=== PATIENT | male | born 1970 | race Caucasian/White ===

== ENCOUNTER 2024-06-28 01:27 | Inpatient (IN) | payer BC, OTHER ==
[2024-06-28] MEDS ORDERED: ONDANSETRON 4 MG/2 ML VIAL ONE ×3 (02:28→11:09)
[2024-06-28] MEDS ORDERED: NA CHLORIDE 0.9% 1,000 ML ONE ×2 (02:29→05:13)
[2024-06-28] MEDS ORDERED: FAMOTIDINE 20 MG/2 ML VIAL IV ONE (02:29)
[2024-06-28] MEDS ORDERED: METOCLOPRAMIDE 10 MG/2mL INJ ONE (02:50)
[2024-06-28] MEDS ORDERED: MORPHINE 4 MG/ML SYR ONE ×2 (02:50→07:22)
[2024-06-28] MEDS ORDERED: KETOROLAC 30 MG/ML INJ ONE ×3 (02:50→11:09)
[2024-06-28 03:22] LABS: Absolute Lymphocytes (CBC) 1.3 K/uL (0.7-4.9); Absolute Monocytes 0.4 K/uL (0.1-1.3); Absolute Neutrophil 10.3 K/uL (1.8-8.0); Basophils % 0.4 % (0-1.3); Eosinophils % 0.2 % (0-4.4); Hematocrit 50.7 % (39.6-49.0); Lymphocytes % 10.6 % (15.3-44.8); MCH 29.5 pg (27.0-35.0); MCHC 33.5 g/dL (32.0-36.0); MPV 8.9 fL (7.6-11.3); Monocytes % 3.4 % (3.3-12.3); Neutrophils % 85.4 % (41.7-73.7); Nucleated Red Blood Cells % 0.1 % (0-0); Platelets 317 thou/uL (152-406); RBC Red Blood Cell Count 5.76 M/uL (4.33-5.43); Red Cell Distribution Width 13.7 % (12.1-15.2)
[2024-06-28 03:26] LABS: Albumin 4.3 g/dL (3.4-5.0); Albumin/Globulin Ratio 1.1 (1.1-1.8); Anion Gap 9.9 mEq/L (5.0-15.0); Bilirubin Total 0.4 mg/dL (0.2-1.0); Potassium 3.9 mEq/L (3.5-5.1); Protein, Total 8.3 g/dL (6.4-8.2)
[2024-06-28 03:29] LABS: C-Reactive Protein 3.27 mg/L (<3.00); Troponin High Sensitivity 6.3 pg/mL (<58.9)
[2024-06-28 03:57] LABS: Band Neutrophils 10 % (0-1); Differential Total Cells Count 100; Lymphocytes 8 % (15-42); Monocytes 1 % (0-10); Reactive Lymphocytes 8 %; Segmented Neutrophils 73 % (40-80)
[2024-06-28 03:58] LABS: Blood Morphology Comment NOT SEEN (NOT SEEN); Platelet Estimate ADEQ
--- NOTE | 2024-06-28 05:37 | RAD REPORT ---
EXAM: CT Chest, Abdomen and Pelvis With Intravenous Contrast CLINICAL HISTORY: The patient is 54 years old and is Male; Abdominal distention. TECHNIQUE: Axial computed tomography images of the chest, abdomen and pelvis with intravenous contr ast. Sagittal and coronal reformatted images were created and reviewed. This CT exam was performed using one or more of the following dose reduction techniques: automated exposure control, adjustment of the mA and/or kV according to patient size, and/or use of iterative reconstruction technique. COMPARISON: No relevant prior studies available. FINDINGS: CHEST: Lungs: Unremarkable. No mass. No consolidation or ground glass opacities. Pleural space: Unremarkable. No significant effusion. No pneumothorax. Heart: Coronary artery calcifications. No cardiomegaly. No significant pericardial effusion. ABDOMEN: Liver: Marked fatty infiltration of the liver. Gallbladder and bile ducts: Unremarkable. No calcified stones. No ductal dilation. Pancreas: No findings to suggest acute pancreatitis. No mass visualized. No ductal dilation. Spleen: Unremarkable. No splenomegaly. Adrenals: Unremarkable. No mass. Kidneys and ureters: Unremarkable. No hydronephrosis. No solid mass. Stomach and bowel: No bowel dilatation or obstruction. No bowel wall thickening. PELVIS: Appendix: The visualized appendix is normal. No pericecal inflammation to suggest acute appendici tis. Bladder: Unremarkable. No mass. Reproductive: Unremarkable as visualized. CHEST, ABDOMEN and PELVIS: Intraperitoneal space: Unremarkable. No significant fluid collection. No free air. Bones/joints: No acute fracture visualized. No dislocation. Soft tissues: Unremarkable. Vasculature: See above. Lymph nodes: Unremarkable. No enlarged lymph nodes. IMPRESSION: 1. No acute findings in the chest, abdomen or pelvis. 2. Marked fatty infiltration of the liver. 3. Additional non-emergent findings as above. Electronically signed by: Amy Mcintyre MD 06/28/2024 04:42 AM [facility] [place] Due to temporary technical issues with the PACS/[employer] reporting system, reports are being frankie d by the in-house radiologist without review as a courtesy to ensure prompt reporting the interpreting radiologist is fully responsible for the content of the report. Transcribed Date/Time: 06/28/2024 5:37 AM
--- NOTE | 2024-06-28 05:49 | RAD REPORT ---
EXAM: US Abdomen Limited, Right Upper Quadrant CLINICAL HISTORY: The patient is 54 years old and is Male; Abd pain. TECHNIQUE: Real-time ultrasound of the right upper quadrant with image documentation. COMPARISON: CT Chest abdomen pelvis 06/28/2024. FINDINGS: Liver: Fatty liver. No intrahepatic bile duct dilation. Gallbladder: Multiple gallstones. No pericholecystic fluid. Gallbladder wall thickness 4.4 mm. Common bile duct: Common bile duct 5.5 mm in diameter. No stones. No dilation. Pancreas: Unremarkable as visualized. Right kidney: Unremarkable. No stones. No solid mass. No hydronephrosis. IMPRESSION: 1. Cholelithiasis with mild gallbladder wall thickening. Correlate clinically for cholecystitis. 2. Fatty liver. Electronically signed by: Amy Mcintyre MD 06/28/2024 05:42 AM [facility] [place] Due to temporary technical issues with the PACS/[employer] reporting system, reports are being signed by the in-house radiologist without review as a courtesy to ensure prompt reporting the interpreting radiologist is fully responsible for the content of the report. Transcribed Date/Time: 06/28/2024 5:49 AM
--- NOTE | 2024-06-28 07:09 | ER ---
Nurse's Notes [facility] Name: Roman Cardona Age: 54 yrs Sex: Male : 1970 Arrival Date: 06/28/2024 Time: 01:27 Bed 12 Private MD: Diagnosis: Acute cholecystitis;Cholelithiasis with acute cholecystitis Presentation: 06/28 01:42 Chief complaint: Patient states: epigastric pain radiating to back began at 5 pm kl positive nausea. Coronavirus screen: Vaccine status: Patient reports being unvaccinated. Ebola Screen: Patient negative for fever greater than or equal to 101.5 degrees Fahrenheit, and additional compatible Ebola Virus Disease symptoms. Initial Sepsis Screen: Does the patient meet any 2 criteria? No. Patient's initial sepsis screen is negative. Does the patient have a suspected source of infection? No. Patient's initial sepsis screen is negative. Risk Assessment: Do you want to hurt yourself or someone else? Patient reports no desire to harm self or others. Onset of symptoms was June 27, 2024 at 17:00. 01:42 Method Of Arrival: Ambulatory 01:42 Acuity: NATA 3 kl Triage Assessment: 01:45 General: Appears uncomfortable, well developed, well nourished, Behavior is kl cooperative, restless. Pain: Complains of pain in epigastric area Pain currently is 8 out of 10 on a pain scale. GI: Reports nausea. Historical: - Allergies: 01:43 PENICILLINS; kl - Home Meds: 01:43 monjauro 15mg sq [Active]; kl - PMHx: 01:43 NIDDM; - PSHx: 01:43 elbow; kl - Immunization history:: Adult Immunizations not immunized. - Infectious Disease History:: Denies. - Social history:: Smoking status: Patient/guardian denies using tobacco, the patient reports quitting approximately 11 years ago. - Family history:: not pertinent. Screenin:39 [facility] ED Fall Risk Assessment (Adult) History of falling in the last 3 months, kl including since admission No falls in past 3 months (0 pts) Confusion or Disorientation No (0 pts) Intoxicated or Sedated No (0 pts) Impaired Gait No (0 pts) Mobility Assist Device Used No (0 pt) Altered Elimination No (0 pt) Score/Fall Risk Level 0 - 2 = Low Risk Oriented to surroundings, Maintained a safe environment. Abuse screen: Denies threats or abuse. Nutritional screening: No deficits noted. Tuberculosis screening: No symptoms or risk factors identified. Assessment: 02:39 General: Appears uncomfortable, Behavior is calm, cooperative. Pain: Complains of pain kl in epigastric area Pain radiates to posterior chest Pain currently is 8 out of 10 on a pain scale. Quality of pain is described as aching. Neuro: No deficits noted. Cardiovascular: No deficits noted. Rhythm is sinus rhythm. Respiratory: No deficits noted. GI: Reports upper abdominal pain, indigestion, nausea. : No deficits noted. No signs and/or symptoms were reported regarding the genitourinary system. EENT: No deficits noted. No signs and/or symptoms were reported regarding the EENT system. Derm: No deficits noted. No signs and/or symptoms reported regarding the dermatologic system. 03:30 Reassessment: Patient and/or family updated on plan of care and expected duration. Pain ha1 level reassessed. Patient is alert, oriented x 3, equal unlabored respirations, skin warm/dry/pink. Patient states feeling better. Patient states symptoms have improved. 04:20 Reassessment: Patient and/or family updated on plan of care and expected duration. Pain ha1 level reassessed. Patient is alert, oriented x 3, equal unlabored respirations, skin warm/dry/pink. 05:22 Reassessment: Patient and/or family updated on plan of care and expected duration. Pain ha1 level reassessed. Patient is alert, oriented x 3, equal unlabored respirations, skin warm/dry/pink. Patient states symptoms have improved. 07:33 Reassessment: Patient and/or family updated on plan of care and expected duration. Pain ap3 level reassessed. Patient is alert, oriented x 3, equal unlabored respirations, skin warm/dry/pink. General: Appears in no apparent distress. Behavior is calm, cooperative, appropriate for age. Pain: Complains of pain in epigastric area. Neuro: Level of Consciousness is awake, alert, obeys commands, Oriented to person, place, time, situation. Cardiovascular: Patient's skin is warm and dry. Respiratory: Airway is patent Respiratory effort is even, unlabored, Respiratory pattern is regular, symmetrical. GI: Reports upper abdominal pain. 09:04 Reassessment: Patient and/or family updated on plan of care and expected duration. Pain kb3 level reassessed. Pt ambulatory to restroom without difficulty. [employer]IPAL [employer]ELOPER at bedside to transport pt to PACU. Pt states no questions at this time. Vital Signs: 01:42 BP 187 / 111; Pulse 112; Resp 16; Pulse Ox 100% on R/A; Weight 97.98 kg; Height 5 ft. 6 kl in. ; Pain 8/10; 03:13 BP 183 / 116; Pulse 112; kl 03:32 BP 177 / 91; Pulse 110; Resp 18 S; Temp 97.9(T); Pulse Ox 100% on R/A; ha1 04:00 BP 168 / 94; Pulse 105; Resp 18 S; Pulse Ox 95% on R/A; ha1 05:22 BP 156 / 93; Pulse 106; Resp 18 S; Pulse Ox 94% on R/A; ha1 07:48 BP 175 / 97; Pulse 107; Resp 17; Pulse Ox 100% on R/A; ap3 01:42 Body Mass Index 34.86 (97.98 kg, 167.64 cm) kl 01:42 Pain Scale: Adult kl [place] Coma Score: 05:29 Eye Response: spontaneous(4). Motor Response: obeys commands(6). Verbal Response: sp4 oriented(5). Total: 15. ED Course: 01:31 Patient arrived in ED. im 01:35 Giovanni Roberson MD is Attending Physician. sp4 01:43 Triage completed. kl 02:24 Inserted saline lock: 20 gauge in right antecubital area, using aseptic technique. rv1 Blood collected. Flushed with 10 mL NS. 02:25 CBC with Diff Sent. rv1 02:25 CMP Sent. rv1 02:25 Lipase Sent. rv1 02:40 Patient has correct armband on for positive identification. kl 03:53 CT Chest, Abdomen, Pelvis - W/Contrast In Process Unspecified. EDMS 05:12 US Abdomen Limited In Process Unspecified. EDMS 07:04 Maryan Sinclair MD is Hospitalizing Provider. sp4 07:34 Arm band placed on right wrist. ap3 07:35 Laura Palm, ROBYN is Primary Nurse. ap3 Administered Medications: 02:30 Drug: Famotidine IVP 20 mg IVP once; dilute with 10 mL 0.9% NaCl; give over 2 minutes kl Route: IVP; Site: right antecubital; 07:34 Follow up: Response: No adverse reaction ap3 02:30 Drug: NS 0.9% IV 1000 ml IV at 1 bolus Per protocol; to be given as a bolus over 60 kl minutes Route: IV; Rate: 1 bolus; Site: right antecubital; 05:25 Follow up: Response: No adverse reaction; IV Status: Completed infusion; IV Intake: ha1 1000ml 02:35 Drug: Ondansetron IVP 4 mg IVP once; over 2 minutes Route: IVP; Site: right antecubital;kl 03:20 Follow up: Response: No adverse reaction; Marked relief of symptoms ha1 02:50 Drug: morphine IVP or IV 8 mg IVP once over 4 mins Route: IVP; Infused Over: 4 mins; kl Site: right antecubital; 03:20 Follow up: Response: No adverse reaction; Marked relief of symptoms; Pain is decreased; ha1 RASS: Alert and Calm (0) 02:55 Drug: metoCLOPramide IVP 10 mg IVP once; over 1 to 2 minutes Route: IVP; Site: right kl antecubital; 03:20 Follow up: Response: No adverse reaction; Marked relief of symptoms ha1 02:59 Drug: Ketorolac IVP 30 mg IVP once Route: IVP; Site: right antecubital; kl 03:30 Follow up: Response: No adverse reaction; Marked relief of symptoms ha1 05:20 Drug: NS 0.9% IV 1000 ml IV at 1 bolus Per protocol; to be given as a bolus over 60 ha1 minutes Route: IV; Rate: 1 bolus; Site: right antecubital; 07:33 Follow up: IV Status: Completed infusion; IV Intake: 1000ml ap3 07:33 Drug: Rocephin - Rocephin (cefTRIAXone) IVPB 1 grams IVPB once over 30 mins; (mix in 50 ap3 mL NS) Route: IVPB; Infused Over: 30 mins; Site: right antecubital; 07:49 Follow up: IV Status: Completed infusion ap3 07:33 Drug: morphine IVP or IV 4 mg IVP once over 4 mins Route: IVP; Infused Over: 4 mins; ap3 Site: right antecubital; 07:49 Follow up: Response: No adverse reaction; Pain is decreased; RASS: Alert and Calm (0) ap3 07:49 Drug: metroNIDAZOLE IVPB 500 mg 100 ml IVPB at 200 ml/hr once over 30 mins Volume: 100 ap3 ml; Route: IVPB; Rate: 200 ml/hr; Infused Over: 30 mins; Site: left antecubital; 08:44 Follow up: IV Status: Completed infusion ap3 Intake: 05:25 IV: 1000ml; Total: 1000ml. ha1 07:33 IV: 1000ml; Total: 2000ml. ap3 Outcome: 07:08 Decision to Hospitalize by Provider. sp4 09:08 Admitted to OR accompanied by nurse, via wheelchair, Report called to done at bedside kb3 09:08 Condition: stable 09:08 Patient left the ED. kb3 Signatures: Dispatcher [employer] EDMS Shaneka Mendenhall RN RN kl Prokisch, Amanda, RN RN ap3 Jessica Loyola RN RN ha1 Kathy Tomlinson RN RN kb3 Marsha Hand rvGiovanni Harris MD MD sp4 Brissa Perry Corrections: (The following items were deleted from the chart) 01:45 01:43 Allergies: No Known Allergies; yandy kebede
--- NOTE | 2024-06-28 07:09 | EDPHYS ---
Physician Documentation [facility] Name: Roman Cardona Age: 54 yrs Sex: Male : 1970 Arrival Date: 06/28/2024 Time: 01:27 Bed 12 Private MD: ED Physician Giovanni Roberson HPI: 06/28 01:35 This 54 yrs old Other Race Male presents to ER via Unassigned with complaints of sp4 Epigastric Pain, Nausea. 05:29 Patient presents with 2 days of moderate to severe epigastric abdominal pain associated sp4 with nausea. Historical: - Allergies: : PENICILLINS; kl - Home Meds: : monjauro 15mg sq [Active]; kl - PMHx: :43 NIDDM; kl - PSHx: :43 elbow; kl - Immunization history:: Adult Immunizations not immunized. - Infectious Disease History:: Denies. - Social history:: Smoking status: Patient/guardian denies using tobacco, the patient reports quitting approximately 11 years ago. - Family history:: not pertinent. ROS: 05:29 Constitutional: Negative for fever, chills, and weight loss, positive for epigastric sp4 pain positive for nausea positive for chest pain Eyes: Negative for injury, pain, redness, and discharge, 05:29 All other systems are negative, Exam: 05:29 Constitutional: This is a well developed, well nourished patient who is awake, alert, sp4 uncomfortable appearing Head/Face: Normocephalic, atraumatic. Eyes: Pupils equal round and reactive to light, extra-ocular motions intact. Lids and lashes normal. Conjunctiva and sclera are not injected. Cornea within normal limits. Periorbital areas with no swelling, redness, or edema. ENT: Nares patent. No nasal discharge, no septal abnormalities noted. Tympanic membranes are normal and external auditory canals are clear. Oropharynx with no redness, swelling, or masses, exudates, or evidence of obstruction, uvula midline. Mucous membranes moist. Neck: Trachea midline, no thyromegaly or masses palpated, and no cervical lymphadenopathy. Supple, full range of motion without nuchal rigidity, or vertebral point tenderness. Chest/axilla: Normal chest wall appearance and motion. Nontender with no deformity. No lesions are appreciated. Cardiovascular: Regular rate and rhythm with a normal S1 and S2. No gallops, murmurs, or rubs. Normal PMI, no JVD. No pulse deficits. Respiratory: Lungs have equal breath sounds bilaterally, clear to auscultation and percussion. No rales, rhonchi or wheezes noted. No increased work of breathing, no retractions or nasal flaring. Abdomen/GI: Soft, with normal bowel sounds. No distension or tympany. No guarding or rebound. Positive for epigastric abdominal tenderness Back: No spinal tenderness. No costovertebral tenderness. Skin: Warm, dry with normal turgor. Normal color with no rashes, no lesions, and no evidence of cellulitis. MS/ Extremity: Pulses equal, no cyanosis. Neurovascular intact. Full, normal range of motion. Neuro: Awake and alert, GCS 15, oriented to person, place, time, and situation. Cranial nerves II-XII grossly intact. Motor strength 5/5 in all extremities. Sensory grossly intact. Psych: Awake, alert, with orientation to person, place and time. Behavior, mood, and affect are within normal limits 05:29 ECG was reviewed by the Attending Physician. EKG at 0 216 sinus tachycardia 104 otherwise normal Vital Signs: 01:42 BP 187 / 111; Pulse 112; Resp 16; Pulse Ox 100% on R/A; Weight 97.98 kg; Height 5 ft. 6 kl in. ; Pain 8/10; 03:13 BP 183 / 116; Pulse 112; kl 03:32 BP 177 / 91; Pulse 110; Resp 18 S; Temp 97.9(T); Pulse Ox 100% on R/A; ha1 04:00 BP 168 / 94; Pulse 105; Resp 18 S; Pulse Ox 95% on R/A; ha1 05:22 BP 156 / 93; Pulse 106; Resp 18 S; Pulse Ox 94% on R/A; ha1 07:48 BP 175 / 97; Pulse 107; Resp 17; Pulse Ox 100% on R/A; ap3 01:42 Body Mass Index 34.86 (97.98 kg, 167.64 cm) 01:42 Pain Scale: Adult Montgomery Coma Score: 05:29 Eye Response: spontaneous(4). Motor Response: obeys commands(6). Verbal Response: sp4 oriented(5). Total: 15. MDM: 01:38 Medical Screening Exam initiated sp4 05:40 ED course: EXAM: CT Chest, Abdomen and Pelvis With Intravenous Contrast CLINICAL sp4 HISTORY: The patient is 54 years old and is Male; Abdominal distention. TECHNIQUE: Axial computed tomography images of the chest, abdomen and pelvis with intravenous contrast. Sagittal and coronal reformatted images were created and reviewed. This CT exam was performed using one or more of the following dose reduction techniques: automated exposure control, adjustment of the mA and/or kV according to patient size, and/or use of iterative reconstruction technique. COMPARISON: No relevant prior studies available. FINDINGS: CHEST: Lungs: Unremarkable. No mass. No consolidation or ground glass opacities. Pleural space: Unremarkable. No significant effusion. No pneumothorax. Heart: Coronary artery calcifications. No cardiomegaly. No significant pericardial effusion. ABDOMEN: Liver: Marked fatty infiltration of the liver. Gallbladder and bile ducts: Unremarkable. No calcified stones. No ductal dilation. Pancreas: No findings to suggest acute pancreatitis. No mass visualized. No ductal dilation. Spleen: Unremarkable. No splenomegaly. Adrenals: Unremarkable. No mass. Kidneys and ureters: Unremarkable. No hydronephrosis. No solid mass. Stomach and bowel: No bowel dilatation or obstruction. No bowel wall thickening. PELVIS: Appendix: The visualized appendix is normal. No pericecal inflammation to suggest acute appendicitis. Bladder: Unremarkable. No mass. Reproductive: Unremarkable as visualized. CHEST, ABDOMEN and PELVIS: Intraperitoneal space: Unremarkable. No significant fluid collection. No free air. Bones/joints: No acute fracture visualized. No dislocation. Soft tissues: Unremarkable. Vasculature: See above. Lymph nodes: Unremarkable. No enlarged lymph nodes. IMPRESSION: 1. No acute findings in the chest, abdomen or pelvis. 2. Marked fatty infiltration of the liver. 3. Additional non-emergent findings as above. Electronically signed by: Amy Mcintyre MD 06/28/2024 04:42. 07:09 Differential diagnosis: Nonspecific abd pain, gastritis, cholecystitis, pancreatitis, sp4 appendicitis, viral gastroenteritis, gastroenteritis. Data reviewed: vital signs, nurses notes, lab test result(s), radiologic studies, CT scan, ultrasound. Consideration of Admission/Observation Escalation of care including admission/observation considered. Management of patient was discussed with the following: Hospitalist: Loan GARNER. Jewel Diameter Gauger: Patient presents with epigastric abdominal pain. Ultrasound revealed acute cholecystitis patient discussed with Dr. Ford with general surgery. Admitted to hospitalist. ED course: EXAM: US Abdomen Limited, Right Upper Quadrant CLINICAL HISTORY: The patient is 54 years old and is Male; Abd pain. TECHNIQUE: Real-time ultrasound of the right upper quadrant with image documentation. COMPARISON: CT Chest abdomen pelvis 06/28/2024. FINDINGS: Liver: Fatty liver. No intrahepatic bile duct dilation. Gallbladder: Multiple gallstones. No pericholecystic fluid. Gallbladder wall thickness 4.4 mm. Common bile duct: Common bile duct 5.5 mm in diameter. No stones. No dilation. Pancreas: Unremarkable as visualized. Right kidney: Unremarkable. No stones. No solid mass. No hydronephrosis. IMPRESSION: 1. Cholelithiasis with mild gallbladder wall thickening. Correlate clinically for cholecystitis. 2. Fatty liver.. 06/28 01:35 Order name: CBC with Diff; Complete Time: 04:30 sp4 06/28 01:35 Order name: CMP; Complete Time: 04:30 sp4 06/28 01:35 Order name: Lipase; Complete Time: 04:30 sp4 06/28 01:35 Order name: Urinalysis w/ reflexes sp4 06/28 02:26 Order name: Troponin High Sensitivity; Complete Time: 04:30 sp4 06/28 02:26 Order name: BNP; Complete Time: 04:30 sp4 06/28 02:26 Order name: CRP; Complete Time: 04:30 sp4 06/28 03:25 Order name: Manual Differential; Complete Time: 04:30 EDMS 06/28 07:29 Order name: Urinalysis w/ reflexes EDMS 06/28 07:29 Order name: Basic Metabolic Panel EDMS 06/28 07:29 Order name: Basic Metabolic Panel EDMS 06/28 07:29 Order name: CBC with Automated Diff EDMS 06/28 07:29 Order name: CBC with Automated Diff EDMS 06/28 07:29 Order name: Magnesium EDMS 06/28 07:29 Order name: Magnesium EDMS 06/28 02:27 Order name: CT Chest, Abdomen, Pelvis - W/Contrast; Complete Time: 06:57 sp4 06/28 04:30 Order name: US Abdomen Limited; Complete Time: 06:57 sp4 06/28 07:29 Order name: CONS Physician Consult EDMS 06/28 01:35 Order name: IV Saline Lock; Complete Time: 02:25 sp4 06/28 01:35 Order name: Labs collected and sent; Complete Time: : sp4 06/28 06:57 Order name: NPO; Complete Time: 07:33 sp4 EC:16 Rate is 104 beats/min. Rhythm is regular, Sinus tachycardia. QRS Paradis is Normal. OH sp4 interval is normal. QRS interval is normal. QT interval is normal. No Q waves. T waves are Normal. No ST changes noted. Clinical impression: No evidence of ischemia. Interpreted by me. Reviewed by me. Administered Medications: 02:30 Drug: Famotidine IVP 20 mg IVP once; dilute with 10 mL 0.9% NaCl; give over 2 minutes kl Route: IVP; Site: right antecubital; 07:34 Follow up: Response: No adverse reaction ap3 02:30 Drug: NS 0.9% IV 1000 ml IV at 1 bolus Per protocol; to be given as a bolus over 60 kl minutes Route: IV; Rate: 1 bolus; Site: right antecubital; 05:25 Follow up: Response: No adverse reaction; IV Status: Completed infusion; IV Intake: ha1 1000ml 02:35 Drug: Ondansetron IVP 4 mg IVP once; over 2 minutes Route: IVP; Site: right antecubital; 03:20 Follow up: Response: No adverse reaction; Marked relief of symptoms ha1 02:50 Drug: morphine IVP or IV 8 mg IVP once over 4 mins Route: IVP; Infused Over: 4 mins; kl Site: right antecubital; 03:20 Follow up: Response: No adverse reaction; Marked relief of symptoms; Pain is decreased; ha1 RASS: Alert and Calm (0) 02:55 Drug: metoCLOPramide IVP 10 mg IVP once; over 1 to 2 minutes Route: IVP; Site: right kl antecubital; 03:20 Follow up: Response: No adverse reaction; Marked relief of symptoms ha1 02:59 Drug: Ketorolac IVP 30 mg IVP once Route: IVP; Site: right antecubital; 03:30 Follow up: Response: No adverse reaction; Marked relief of symptoms ha1 05:20 Drug: NS 0.9% IV 1000 ml IV at 1 bolus Per protocol; to be given as a bolus over 60 ha1 minutes Route: IV; Rate: 1 bolus; Site: right antecubital; 07:33 Follow up: IV Status: Completed infusion; IV Intake: 1000ml ap3 07:33 Drug: Rocephin - Rocephin (cefTRIAXone) IVPB 1 grams IVPB once over 30 mins; (mix in 50 ap3 mL NS) Route: IVPB; Infused Over: 30 mins; Site: right antecubital; 07:49 Follow up: IV Status: Completed infusion ap3 07:33 Drug: morphine IVP or IV 4 mg IVP once over 4 mins Route: IVP; Infused Over: 4 mins; ap3 Site: right antecubital; 07:49 Follow up: Response: No adverse reaction; Pain is decreased; RASS: Alert and Calm (0) ap3 07:49 Drug: metroNIDAZOLE IVPB 500 mg 100 ml IVPB at 200 ml/hr once over 30 mins Volume: 100 ap3 ml; Route: IVPB; Rate: 200 ml/hr; Infused Over: 30 mins; Site: left antecubital; 08:44 Follow up: IV Status: Completed infusion ap3 Disposition Summary: 06/28/24 07:08 Hospitalization Ordered Notes: Hospitalization Status: Observation sp4 Provider: Maryan Sinclair sp4 [facility] sp[facility] Condition: Stable sp4 Problem: new sp4 Symptoms: have improved sp4 Bed/Room Type: Standard sp4 Room Assignment: sp4 Diagnosis - Acute cholecystitis sp4 - Cholelithiasis with acute cholecystitis sp4 Forms: - Medication Reconciliation Form sp4 - SBAR form sp4 - Leadership Thank You Letter sp4 Signatures: Dispatcher [employer] EDMS Shaneka Mendenhall RN RN kl Prokisch, Amanda, RN RN ap3 Jessica Loyola RN RN ha1 Giovanni Roberson MD MD sp4 Corrections: (The following items were deleted from the chart) 01:36 01:36 CBC+H.LAB.BRZ ordered. EDMS EDMS 01:36 01:36 COMPREHENSIVE METABOLIC PANEL+C.LAB.BRZ ordered. EDMS EDMS 01:36 01:36 LIPASE+C.LAB.BRZ ordered. EDMS EDMS 01:36 01:36 Urinalysis+U.LAB.BRZ ordered. EDMS EDMS 01:45 01:43 Allergies: No Known Allergies; kl kl 02:27 02:27 Troponin High Sensitivity+C.LAB.BRZ ordered. EDMS EDMS 02:27 02:27 PROBNP+C.LAB.BRZ ordered. EDMS EDMS 02:27 02:27 C-REACTIVE PROTEIN+C.LAB.BRZ ordered. EDMS EDMS 02:27 02:27 Chest Abdomen Pelvis W Con+CT.RAD.BRZ ordered. EDMS EDMS
[2024-06-28] MEDS ORDERED: NA CHLORIDE 0.9% 100 ML ONE (07:22)
[2024-06-28] MEDS ORDERED: METRONIDAZOLE 500mg IVPB 500 MG/100 ML BAG IV ONE (07:22)
[2024-06-28] MEDS ORDERED: CEFTRIAXONE 1000 MG/VIAL ONE (07:22)
[2024-06-28] MEDS ORDERED: ACETAMINOPHEN 500 MG TAB PO PRN (07:23)
[2024-06-28] MEDS ORDERED: ONDANSETRON 4 MG/2 ML VIAL IV PRN (07:23)
[2024-06-28] MEDS: METOPROLOL TARTRATE 5 MG/5 ML INJ IV ONE (08:00)
[2024-06-28] MEDS ORDERED: PIPER TAZO 3.375 GM in NA CHLORIDE 0.9% 100 ML IV SCH (09:00)
[2024-06-28] MEDS: NA CHLORIDE 0.9% 1,000 ML ONE ×2 (09:17→13:39)
[2024-06-28] MEDS ORDERED: LIDOCAINE 1% MPF 5 ML VIAL ONE ×2 (09:21→11:09)
[2024-06-28] MEDS ORDERED: FENTANYL CITR 100 MCG/2 ML ONE ×2 (09:21→11:09)
[2024-06-28] MEDS ORDERED: ROCURONIUM 50 MG/5 ML VIAL IV ONE ×2 (09:21→11:09)
[2024-06-28] MEDS ORDERED: MIDAZOLAM HCL 2 MG/2 ML INJ ONE ×2 (09:21→11:09)
[2024-06-28] MEDS ORDERED: propofoL 200 MG/20 ML VIAL IV ONE ×2 (09:21→11:09)
[2024-06-28] MEDS: SUGAMMADEX SODIUM 200 MG/2 ML VIAL IV ONE (11:46)
[2024-06-28] MEDS: SUCCINYLCHOLINE 20 MG/ML (10 ML) IV ONE (11:47)
[2024-06-28] MEDS ORDERED: dexAMETHasone 10 MG/ML VIAL ONE (12:15)
[2024-06-28] MEDS: HYDROMORPHONE HCL 1 MG/ML INJ ONE (12:51)
--- NOTE | 2024-06-28 13:41 | P.BOP ---
Preoperative diagnosis: Acute cholecystitis, symptomatic cholelithiasis Postoperative diagnosis: same Primary procedure: Laparoscopic cholecystectomy Estimated blood loss: <10cc Specimen: gb Findings: as above Anesthesia: General Complications: None Drain(s): DESIRE drain Transferred to: Recovery Room Condition: Good
--- NOTE | 2024-06-28 13:58 | CON ---
Date of Consultation: 06/28/2024 Diagnoses: Acute cholecystitis, symptomatic cholelithiasis. History Of Present Illness: This is the case of a 54-year-old patient with history of hypertension a nd diabetes, who comes to us with epigastric right upper quadrant pain radiating to the back associat ed with nausea, vomiting, starting last night, postprandial. He had some prior episode, but he did n ot pinpoint it out as the gallbladder, now is more delineated and the imaging confirmed the diagnosis . He has been trying to lose some weight. He is even on Mounjaro, also trying to control his diabet es. He denies any dysuria, hematuria, hematochezia, melena. Denies any recent traveling out of the country. Denies any family member sick at home. Past Medical History: Diabetes, non-insulin dependent. Medications: PO diabetes medications and Mounjaro. Social History: He does not smoke. He does not drink alcohol. Family History: Noncontributory. Allergies: PENICILLIN. Review of Systems: See above. Nausea, vomiting, epigastric pain. 10 points otherwise unremarkable. Physical Examination: Vital Signs: Reviewed. General: The patient is awake, alert. HEENT: Pupils are equal and reactive. Anicteric. Neck: Supple. Chest: Clear. Heart: S1, S2. Abdomen: Epigastric, right upper quadrant pain radiating to the back. Warner sign positive. Extremities: Good capillary refill. Lab: WBC count is 12, hemoglobin 17, and platelets are 317. Potassium 3.9, and creatinine is 1.24. Right upper quadrant abdominal pain includes a cholelithiasis with gallbladder wall thickening, fatt y liver. CAT scan of the abdomen and pelvis. CAT scan fatty liver. Appendix normal. Lymph nodes u nremarkable. Assessment: A 54-year-old patient with acute cholecystitis, symptomatic cholelithiasis. Benefits, a lternatives, risks of laparoscopic possible open cholecystectomy fully explained, which include, but not limited to infection, bleeding, damage to adjacent structures, anesthesia complication, choledoch olithiasis, bile leak, pancreatitis, GA and even . He also understands this may not relieve sym ptoms, he might need more than one surgical intervention. He understood and signed the consent. KRIS/KIKI Voice ID: [id number] Report ID: [id number]
--- NOTE | 2024-06-28 14:49 | OP ---
Date of Procedure: 06/28/2024 Surgeon: Topher Ford MD Preoperative Diagnoses: Acute cholecystitis, symptomatic cholelithiasis. Postoperative Diagnoses: Acute cholecystitis, symptomatic cholelithiasis. Procedure: Laparoscopic cholecystectomy. Estimated Blood Loss: Less than 10 cc. Specimen: Gallbladder. Anesthesia: General plus local. Complications: None. Drains: DESIRE #10. Indications: This is the case of a 54-year-old patient, comes to us with acute epigastric and right upper quadrant pain, diagnosed with acute cholecystitis. The benefits, alternatives, and risks of la paroscopic possible open cholecystectomy fully explained, which include, but not limited to infection , bleeding, damage to adjacent structures, anesthesia complication, choledocholithiasis, bile leak, p ancreatitis, MA, even . He also understands this may not relieve the symptoms. He might need m ore than one surgical intervention. He understood, signed a consent. Description Of Procedure: The patient brought to the operating room, placed in supine position. Ane sthesia was done without complication. Abdominal area was prepped and draped in sterile fashion. Ma rcaine 0.5% injected for local anesthetic followed by sharp incision of the skin in the supraumbilica l region. Incision was carried down to fascia, which was opened under direct vision. Peritoneum was encountered, opened under direct vision. Vicryl #1 placed inside the fascia. Sadiq trocar was car efully introduced. No bleeding was obtained. I placed attention to the gallbladder, looks inflamed and contracted. We put a grasper in the fundus of the gallbladder, another grasper in the infundibul um, retracting the gallbladder in the inferolateral fashion exposing the triangle of Calot, obtaining critical view. Multiple adhesions of the gallbladder probably from previous inflammation were disse cted with the help of LigaSure to expose the gallbladder completely. Once again, with the gallbladde r retracted in the inferolateral fashion, we proceeded to isolate the cystic duct and cystic artery c ircumferentially and a connection between those and the gallbladder was clearly identified after crit ical view was obtained. At that moment, I proceeded to place 3 clips proximal 1 clip distal, ligatio n in middle. Same was done with the cystic artery. A small little branch of the cystic artery was a lso ligated using same technique. Common bile duct and hepatic arteries were protected at all times. Area was irrigated, suction was done. At that moment, I proceeded then to remove the gallbladder f rom liver using Bovie cauterizer and removed from abdominal cavity using EndoCatch through the umbili jes incision. This gallbladder was imbedded into the liver bed that we had to deflate the gallbladde r to be able to remove that completely. The gallbladder was removed once again from the abdomen to a n EndoCatch through the umbilical incision. The area was inspected once again. Hemostasis was obtai nicholas in the liver bed. I left a DESIRE drain in that region to help us with this inflammatory process. T he DESIRE drain was put through one of the trocar sites, secured in place with 2-0 nylon. Area was inspe cted once again. No bile leak. No bleeding. At that moment, I proceeded to remove the trocars unde r direct vision. Deflated the pneumoperitoneum. Closed the fascia with #1 Vicryl. Irrigated subcut aneous tissue, closed that with 3-0 chromic and skin with reji. Sponge count, instrument counts c orrect. The patient tolerated the procedure well. The patient was sent to recovery in stable condit ion. KRIS/KIKI Voice ID: [id number] Report ID: [id number]
[2024-06-28] MEDS: NA CHLORIDE 0.9% 1,000 ML IV SCH (16:00)
[2024-06-28] MEDS: METRONIDAZOLE 500mg IVPB 500 MG/100 ML BAG IV SCH (17:00)
[2024-06-28 19:08] VITALS: BMI 34.8
[2024-06-28] MEDS: HYDROCODONE/APAP 5/325 MG TAB PO PRN (20:12)
[2024-06-28] MEDS: CIPROFLOXACIN 400mg IV 400 MG/200 ML BAG IV SCH (20:12)
--- NOTE | 2024-06-28 21:19 | P.HP ---
Certification for Inpatient Patient admitted to: Inpatient With expected LOS: <2 Midnights <Elana Cates - Last Filed: 07/01/24 15:50> Patient History Date of Service: 07/01/24 Reason for admission: Acute acute cholecystitis History of Present Illness: 54 yrs old with a past medical history NIDDM presents to the emergency room with abdominal pain. He reports associated nausea vomiting. No reported fever, chest pain, shortness of breath, dizziness. ER evaluation patient abdominal ultrasound cholelithiasis with mild gallbladder wall thickening. Correlate clinically for cholecystitis.2. Fatty liver. Laboratory evaluation leukocytosis 12.0, liver enzymes normal plan to admit for acute cholecystitis, abdominal pain, nausea vomiting with surgery to consult. - Past Medical/Surgical History Diabetic: Yes -: None insulin-dependent diabetes mellitus -: GERD -: Status post laparoscopic cholecystectomy - Social History Smoking Status: Former smoker Alcohol use: Yes CD- Drugs: No Caffeine use: No Place of Residence: Home <Elana Cates - Last Filed: 07/01/24 15:50> Date of Service: 06/28/24 <Maryan Sinclair - Last Filed: 07/03/24 01:47> Allergies Penicillins Allergy (Unknown, Verified 06/28/24 19:51) unknown, please verify with patient Home Medications: Omeprazole [Prilosec] 40 mg PO DAILY 06/28/24 Tirzepatide [Mounjaro] 15 mg SQ Q7D 06/28/24 allopurinoL [Zyloprim*] 300 mg PO DAILY 06/28/24 icosapent ethyL [Icosapent Ethyl] 2 cap PO DAILY 06/28/24 tadalafiL [Tadalafil] 5 mg PO DAILY 06/28/24 Bacillus Coagulans [Probiotics] 1 each PO BID 7 Days #14 tab.chew 06/30/24 Ciprofloxacin HCl [Cipro] 500 mg PO BID 7 Days #14 tab 06/30/24 traMADol HCL [Ultram*] 50 mg PO Q6H PRN 7 Days #15 tab 06/30/24 Review of Systems 10-point ROS is otherwise unremarkable <Elana Cates - Last Filed: 07/01/24 15:50> Physical Examination - Vital Signs Temperature: 97.5 F Blood Pressure: 159/84 Pulse: 111 Respirations: 17 Pulse Ox (%): 99 - Physical Exam General: Alert, In no apparent distress, Oriented x3 HEENT: Atraumatic, Normocephalic Neck: Supple, JVD not distended Respiratory: Clear to auscultation bilaterally, Normal air movement Cardiovascular: Normal pulses, Regular rate/rhythm, Normal S1 S2 Gastrointestinal: Normal bowel sounds, Other (Upper quadrant tenderness, epigastric tenderness) Musculoskeletal: No clubbing, No swelling Integumentary: No breakdown, No significant lesion Neurological: Normal speech, Normal strength at 5/5 x4 extr, Sensation intact - Studies Laboratory Data (last 24 hrs) 06/28/24 06/28/24 02:23 02:23 WBC 12.00 H Hgb 17.0 Hct 50.7 H Plt Count 317 Sodium 136 Potassium 3.9 BUN 15 Creatinine 1.24 Glucose 201 H Total Bilirubin 0.4 AST 20 ALT 50 Alkaline Phosphatase 70 Lipase 102 H <Elana Cates - Last Filed: 07/01/24 15:50> Assessment and Plan - Plan Assessment plan - Current Problems (Diagnosis) (1) Acute cholecystitis Current Visit: Yes Status: Acute (2) Abdominal pain Current Visit: Yes Status: Acute Qualifiers: Abdominal location: right upper quadrant Qualified Code(s): R10.11 - Right upper quadrant pain (3) Nausea & vomiting Current Visit: Yes Status: Acute Qualifiers: Vomiting type: bilious vomiting Qualified Code(s): R11.14 - Bilious vomiting Qualifiers: (4) Non-insulin dependent type 2 diabetes mellitus Current Visit: Yes Status: Acute (5) Microcytic anemia Current Visit: Yes Status: Chronic (6) Fatty liver Current Visit: Yes Status: Acute - [facility], keep n.p.o., IV fluids, IV antibiotics, as needed analgesics, antiemetics Resume home medication Trend H&H, Accu-Chek ACHS, sliding scale insulin Trend H&H, Educated on low-fat low-sodium diet Full code DVT SCDs Diet clear liquids advance as tolerated Discharge Plan: Home - Code Status/Comfort Care Code Status: Full Code Critical Care: No Time Spent Managing PTS Care (In Minutes): 55 Discharge Plan: Home - Advance Directives Does patient have a Living Will: No Does patient have a Durable POA for Healthcare: No - Code Status/Comfort Care Code Status: Full Code Time Spent Managing Pts Care (In Minutes): 55 <Elana Cates - Last Filed: 07/01/24 15:50> Date of Service: 06/28/24 Chart has been reviewed. Events of the last 24 hours have been noted. Case discussed with MARYAN. I performed a substantial part of the MDM during this patient's care today. I personally made or approved the documented management plan and acknowledge its risk of complications. I agree with the findings and documentation provided in the MARYAN's notes <Maryan Sinclair - Last Filed: 07/03/24 01:47>
[2024-06-28] MEDS: carvediloL 6.25 MG TAB PO SCH (21:51)
[2024-06-29] MEDS: MORPHINE 4 MG/ML SYR IV PRN (00:16)
[2024-06-29 05:32] LABS: Absolute Lymphocytes (CBC) 1.8 K/uL (0.7-4.9); Absolute Monocytes 0.7 K/uL (0.1-1.3); Absolute Neutrophil 8.6 K/uL (1.8-8.0); Basophils % 0.2 % (0-1.3); Eosinophils % 0.2 % (0-4.4); Hematocrit 42.7 % (39.6-49.0); Hemoglobin 14.3 g/dL (13.6-17.9); MCH 29.5 pg (27.0-35.0); MCHC 33.5 g/dL (32.0-36.0); MCV 88.3 fL (80-100); MPV 8.5 fL (7.6-11.3); Monocytes % 6.6 % (3.3-12.3); Nucleated Red Blood Cells % 0.1 % (0-0); Platelets 259 thou/uL (152-406); RBC Red Blood Cell Count 4.83 M/uL (4.33-5.43); Red Cell Distribution Width 13.7 % (12.1-15.2)
[2024-06-29 05:35] LABS: Anion Gap 7.7 mEq/L (5.0-15.0); Magnesium 1.9 mg/dL (1.6-2.4); Potassium 3.7 mEq/L (3.5-5.1)
[2024-06-29] MEDS: INSULIN REGULAR (HUMAN) 100 UNIT/ML SQ SCH (07:30)
[2024-06-29] MEDS: POTASSIUM CL SA 10 MEQ TAB PO ONE (09:34)
--- NOTE | 2024-06-29 15:48 | EKG ---
Test Date: 2024-06-28 Test Time: 02:16:46 Director Of Partnerships: RV MEASUREMENT RESULTS: Intervals: Rate: 104 LA: 176 QRSD: 88 QT: 352 QTc: 462 [place]: P: 53 LA: 176 QRS: 66 T: 46 INTERPRETIVE STATEMENTS: Sinus tachycardia Otherwise normal ECG Compared to ECG 10/10/2009 09:27:38 Sinus rhythm no longer present Electronically Signed On 06-29-24 15:46:14 RETAIL ASSISTANT MANAGER by Sonu Doan
--- NOTE | 2024-06-29 19:13 | P.PN ---
Subjective Date of Service: 06/29/24 Pain control as needed analgesia, tolerating diet, <Elana Cates - Last Filed: 06/29/24 19:16> Date of Service: 06/29/24 <Maryan Sinclair - Last Filed: 07/03/24 01:50> Review of Systems 10-point ROS is otherwise unremarkable <Elana Cates - Last Filed: 06/29/24 19:16> Physical Examination - Vital Signs Temperature: 99.2 F Blood Pressure: 144/86 Pulse: 74 Respirations: 16 Pulse Ox (%): 96 - Physical Exam General: Alert, In no apparent distress, Oriented x3 HEENT: Atraumatic, Normocephalic Neck: Supple Respiratory: Clear to auscultation bilaterally, Normal air movement Cardiovascular: Normal pulses, Regular rate/rhythm Gastrointestinal: Normal bowel sounds, Other (Abdominal dressing clean dry and intact, DESIRE drain intact) Integumentary: Other (Laparoscopic surgical dressing dry and intact) Neurological: Normal speech, Normal strength at 5/5 x4 extr <Elana Cates - Last Filed: 06/29/24 19:16> Assessment And Plan - Current Problems (Diagnosis) (1) Acute cholecystitis Status: Acute (2) Status post laparoscopic cholecystectomy Status: Acute (3) Abdominal pain Status: Acute Qualifiers: Abdominal location: right upper quadrant Qualified Code(s): R10.11 - Right upper quadrant pain (4) Nausea & vomiting Status: Acute Qualifiers: Vomiting type: bilious vomiting Qualified Code(s): R11.14 - Bilious vomiting - Plan Admit to [facility] Surgery consult, keep n.p.o., DESIRE drain, monitor output IV fluids, IV antibiotics, as needed analgesics, antiemetics Advance diet postop as tolerated, Resume home medication Full code DVT SCDs Diet clear liquids advance as tolerated Discharge Plan: Home - Code Status/Comfort Care Code Status: Full Code Critical Care: No Time Spent Managing PTS Care (In Minutes): 35 <Elana Cates - Last Filed: 06/29/24 19:16> Date of Service: 06/29/24 Chart has been reviewed. Events of the last 24 hours have been noted. Case discussed with MARYAN. I performed a substantial part of the MDM during this patient's care today. I personally made or approved the documented management plan and acknowledge its risk of complications. I agree with the findings and documentation provided in the MARYAN's notes <Maryan Sinclair - Last Filed: 07/03/24 01:50>
--- NOTE | 2024-06-29 19:43 | P.DS ---
Admission Date: 06/29/24 Discharge Date: 06/30/24 Reason for Admission: Acute acute cholecystitis Brief History of Present Illness: 54 yrs old with a past medical history NIDDM presents to the emergency room with abdominal pain. He reports associated nausea vomiting. No reported fever, chest pain, shortness of breath, dizziness. ER evaluation patient abdominal ultrasound cholelithiasis with mild gallbladder wall thickening. Correlate clinically for cholecystitis.2. Fatty liver. Laboratory evaluation leukocytosis 12.0, liver enzymes normal plan to admit for acute cholecystitis, abdominal pain, nausea vomiting with surgery to consult. - Physical Exam General: Alert, In no apparent distress, Oriented x3 HEENT: Atraumatic, Normocephalic Neck: Supple, JVD not distended Respiratory: Clear to auscultation bilaterally, Normal air movement Cardiovascular: Normal pulses, Regular rate/rhythm, Normal S1 S2 Gastrointestinal: Normal bowel sounds, Other mild tenderness, DESIRE drain Musculoskeletal: No clubbing, No swelling Integumentary: No breakdown, No significant lesion Neurological: Normal speech, Normal strength at 5/5 x4 extr, Sensation intact Hospital Course: 54 yrs old with a past medical history NIDDM presents to the emergency room with abdominal pain. He reports associated nausea vomiting. No reported fever, chest pain, shortness of breath, dizziness. ER evaluation patient abdominal ultrasound cholelithiasis with mild gallbladder wall thickening. Correlate clinically for cholecystitis.2. Fatty liver. Laboratory evaluation leukocytosis 12.0, liver enzymes normal plan to admit for acute cholecystitis, abdominal pain, nausea vomiting with surgery to consult. Is status post laparoscopic cholecystectomy 06/28. Tolerating diet, plan to discharge home, follow-up with surgery after discharge instructed no heavy lifting greater than 10 pounds, no driving or operating heavy equipment. Analgesics verbalized understanding Discharge home with DESIRE drain, nurse taught patient how to use prior to discharge Patient needs to follow-up with surgery, call office for appointment, Discharge medications As needed analgesics-instructed no driving while on as needed analgesia Cipro 1 twice daily x 7 days #14 probiotic -take while taking and Assessment Acute cholecystitis Post laparoscopic cholecystectomy Abdominal pain, nausea vomiting resolved Microcytic anemia-stable Insulin-dependent diabetes mellitus resume home meds Continue home medicines as previously prescribed GOAL: Clear understanding of disease process INSTRUCTIONS: Physician Discharge Instructions: -Follow-up with surgery after discharge call office for apt -Follow-up with PCP in 1 to 2 weeks -Please call Dr. Sinclair at [phone] if any questions regarding hospital stay -Please call nursing station at [phone] if any nursing or medication questions -Return to the emergency room if symptoms worsen Diet: ADA, low sodium Activity: Fall precautions <Elana Cates - Last Filed: 06/30/24 20:56> Admission Date: 06/29/24 Discharge Date: 06/30/24 Hospital Course: Chart has been reviewed. Events of the last 24 hours have been noted. Case discussed with MARYAN. I performed a substantial part of the MDM during this patient's care today. I personally made or approved the documented management plan and acknowledge its risk of complications. I agree with the findings and documentation provided in the MARYAN's notes <Maryan Sinclair - Last Filed: 07/03/24 01:50> Disposition: ROUTINE DISCHARGE Discharge Condition: GOOD Vital Signs/Physical Exam: Temp Pulse Resp BP Pulse Ox 97.5 F 111 H 17 159/84 H 99 06/29/24 19:37 06/29/24 19:37 06/29/24 19:37 06/29/24 19:37 06/29/24 19:37 Laboratory Data at Discharge: WBC 11.20 thou/uL (4.3-10.9) H 06/29/24 05:03 Hgb 14.3 g/dL (13.6-17.9) D 06/29/24 05:03 Hct 42.7 % (39.6-49.0) 06/29/24 05:03 Plt Count 259 thou/uL (152-406) 06/29/24 05:03 Sodium 138 mEq/L (136-145) 06/29/24 05:03 Potassium 3.7 mEq/L (3.5-5.1) 06/29/24 05:03 BUN 12 mg/dL (7-18) 06/29/24 05:03 Creatinine 1.06 mg/dL (0.70-1.30) 06/29/24 05:03 Glucose 135 mg/dL (74-106) H 06/29/24 05:03 Magnesium 1.9 mg/dL (1.6-2.4) 06/29/24 05:03 Total Bilirubin 0.4 mg/dL (0.2-1.0) 06/28/24 02:23 AST 20 U/L (15-37) 06/28/24 02:23 ALT 50 U/L (16-61) 06/28/24 02:23 Alkaline Phosphatase 70 U/L (45-117) 06/28/24 02:23 Lipase 102 U/L (13-75) H 06/28/24 02:23 <Elana Cates - Last Filed: 06/30/24 20:56> Vital Signs/Physical Exam: Temp Pulse Resp BP Pulse Ox 97.5 F 111 H 17 159/84 H 99 07/01/24 15:50 07/01/24 15:50 07/01/24 15:50 07/01/24 15:50 07/01/24 15:50 Laboratory Data at Discharge: WBC 11.20 thou/uL (4.3-10.9) H 06/29/24 05:03 Hgb 14.3 g/dL (13.6-17.9) D 06/29/24 05:03 Hct 42.7 % (39.6-49.0) 06/29/24 05:03 Plt Count 259 thou/uL (152-406) 06/29/24 05:03 Sodium 140 mEq/L (136-145) 06/30/24 04:30 Potassium 4.0 mEq/L (3.5-5.1) 06/30/24 04:30 BUN 12 mg/dL (7-18) 06/30/24 04:30 Creatinine 1.20 mg/dL (0.70-1.30) 06/30/24 04:30 Glucose 128 mg/dL (74-106) H 06/30/24 04:30 Magnesium 1.9 mg/dL (1.6-2.4) 06/29/24 05:03 Total Bilirubin 0.4 mg/dL (0.2-1.0) 06/28/24 02:23 AST 20 U/L (15-37) 06/28/24 02:23 ALT 50 U/L (16-61) 06/28/24 02:23 Alkaline Phosphatase 70 U/L (45-117) 06/28/24 02:23 Lipase 102 U/L (13-75) H 06/28/24 02:23 <Maryan Sinclair - Last Filed: 07/03/24 01:50> Diet: Low sodium Activity: Fall precautions Time spent managing pt's care (in minutes): 55 <Elana Cates - Last Filed: 06/30/24 20:56> <Maryan Sinclair - Last Filed: 07/03/24 01:50> Home Medications: Omeprazole [Prilosec] 40 mg PO DAILY 06/28/24 Tirzepatide [Mounjaro] 15 mg SQ Q7D 06/28/24 allopurinoL [Zyloprim*] 300 mg PO DAILY 06/28/24 icosapent ethyL [Icosapent Ethyl] 2 cap PO DAILY 06/28/24 tadalafiL [Tadalafil] 5 mg PO DAILY 06/28/24 Bacillus Coagulans [Probiotics] 1 each PO BID 7 Days #14 tab.chew 06/30/24 Ciprofloxacin HCl [Cipro] 500 mg PO BID 7 Days #14 tab 06/30/24 traMADol HCL [Ultram*] 50 mg PO Q6H PRN 7 Days #15 tab 06/30/24 New Medications: Ciprofloxacin HCl [Cipro] 500 mg PO BID 7 Days #14 tab Bacillus Coagulans [Probiotics] 1 each PO BID 7 Days #14 tab.chew traMADol HCL [Ultram*] 50 mg PO Q6H PRN 7 Days #15 tab PRN Reason: Pain Physician Discharge Instructions: 54 yrs old with a past medical history NIDDM presents to the emergency room with abdominal pain. He reports associated nausea vomiting. No reported fever, chest pain, shortness of breath, dizziness. ER evaluation patient abdominal ultrasound cholelithiasis with mild gallbladder wall thickening. Correlate clinically for cholecystitis.2. Fatty liver. Laboratory evaluation leukocytosis 12.0, liver enzymes normal plan to admit for acute cholecystitis, abdominal pain, nausea vomiting with surgery to consult. Is status post laparoscopic cholecystectomy 06/28. Tolerating diet, plan to discharge home, follow-up with surgery after discharge instructed no heavy lifting greater than 10 pounds, no driving or operating heavy equipment. Analgesics verbalized understanding Discharge medications As needed analgesics Cipro 1 twice daily x 7 days #14 probiotic while on ABX DESIRE drain, nurse instructed how to care for. Assessment Acute cholecystitis Post laparoscopic cholecystectomy Abdominal pain, nausea vomiting resolved Microcytic anemia Insulin-dependent diabetes mellitus resume home meds Continue home medicines as previously prescribed GOAL: Clear understanding of disease process INSTRUCTIONS: Physician Discharge Instructions: -Follow-up with surgery after discharge call office for apt -Follow-up with PCP in 1 to 2 weeks -Please call Dr. Sinclair at [phone] if any questions regarding hospital stay -Please call nursing station at [phone] if any nursing or medication questions -Return to the emergency room if symptoms worsen Diet: ADA, low sodium Activity: Fall precautions Followup: Topher Ford MD [ACTIVE - CAN ADMIT] - 1-2 Weeks NONE,NONE [Primary Care Provider] -
[2024-06-29 21:14] VITALS: O2SAT 95
[2024-06-30 01:15] LABS: Specific Gravity 1.007 (1.005-1.030); Sqamous Epithelial None Seen /HPF (None Seen); Urine Bacteria None Seen /HPF (<20); Urine Bilirubin NEGATIVE (Negative); Urine Blood Negative (Negative); Urine Clarity Turbid (Clear); Urine Color Colorless (Yellow); Urine Culture Reflex Order NOT NEEDED; Urine Glucose NEGATIVE (Negative); Urine Ketones NEGATIVE (Negative); Urine Microscopic Reflex YN ORDER UMIC; Urine Nitrite NEGATIVE (Negative); Urine Protein NEGATIVE (Negative); Urine RBC None Seen /HPF (None Seen); Urine Urobilinogen Normal (Normal); Urine WBC <5 /HPF (<5)
--- NOTE | 2024-06-30 11:10 | PN ---
Date of Progress Note: 06/30/2024 Diagnoses: Acute cholecystitis, symptomatic cholelithiasis. Subjective: This is a case of a 54-year-old patient who came to us with acute cholecystitis, found t o have a suppurative gallbladder, required laparoscopic cholecystectomy and drain placement. Patient is doing great and tolerating diet now. No shortness of breath. No chest pain. No fever. Objective: Chest: Clear. Abdomen: Soft and depressible. Intact surgical site. DESIRE drains serosanguineous, minimal. Extremities: Good capillary refill. No calf tenderness. Laboratory Data: Blood work reviewed. Plan: Patient will be going home with p.o. antibiotics. DESIRE drain will be removed from my office whe n he comes either Tuesday or Tuesday, whatever day he preferred. He was advised not to do heavy lif ting until then. KRIS/KIKI Voice ID: [id number] Report ID: [id number]
[2024-07-01 15:51] VITALS: BP 159/84; TEMP 97.5
== END 2024-06-30 11:12 | disposition home or self-care (01) | DRG 419 ==
LOC: ER 01:27 → ERHOLD 07:21 → 2ND 13:16 → OBSVTOIN 06-29 19:08
PROVIDERS: ADMIT Hospitalist; ATTEND Hospitalist
PROC: 0FT44ZZ Resection of Gallbladder, Percutaneous Endoscopic Approach (ICD-10-PCS; principal; 2024-06-28 11:52)
DX: K80.00 Calculus of gallbladder with acute cholecystitis without obstruction (principal); I10 Essential (primary) hypertension; D50.9 Iron deficiency anemia, unspecified; E11.9 Type 2 diabetes mellitus without complications; K76.0 Fatty (change of) liver, not elsewhere classified; K21.9 Gastro-esophageal reflux disease without esophagitis; Z88.0 Allergy status to penicillin; Z87.891 Personal history of nicotine dependence
CPT/HCPCS: 36415; 71260; 74177; 76705; 80048; 80053; 81001; 82947; 83690; 83735; 83880; 84484; 85025; 86140; 88304; 93005; 99285; G0378; J0696; J0744; J1100; J1171; J2003; J2250; J2405; J2704; J2765; J3010; J7030; Q9967